=== PATIENT | male | born 1985 | race Caucasian/White ===

== ENCOUNTER 2019-04-12 07:22 | Emergency (ER) | payer OTHER, BC ==
[~2019-04-12] VITALS: Ht 177.8 cm; Wt 128.4 kg
[2019-04-12] MEDS ORDERED: MELATONIN5 M4 PO (07:38)
== END 2019-04-12 08:03 | disposition home or self-care (01) ==
LOC: ED 07:22
DX: S51.811A Laceration without foreign body of right forearm, initial encounter (principal); W45.8XXA Other foreign body or object entering through skin, initial encounter
CPT/HCPCS: 90471; 90715; 99282-25

== ENCOUNTER 2024-11-12 05:29 | Emergency (ER) | payer BC ==
[~2024-11-12] VITALS: Ht 177.8 cm; Wt 155.6 kg
[~2024-11-12 05:29] MED LIST: MELATONIN5 M4 PO
[2024-11-12] MEDS ORDERED: DOXYCYCLINE HYCLATE 100 MG HOME.PACK PO ONE (06:00)
[2024-11-12 06:38] VITALS: BP 145/94
== END 2024-11-12 06:43 | disposition home or self-care (01) ==
LOC: ED 05:29
DX: L72.9 Follicular cyst of the skin and subcutaneous tissue, unspecified (principal); L08.9 Local infection of the skin and subcutaneous tissue, unspecified; I10 Essential (primary) hypertension; Z79.899 Other long term (current) drug therapy
CPT/HCPCS: 99282; A9270